=== PATIENT | male | born 1970 | race American Indian/Alaskan Native ===

== ENCOUNTER 2020-04-25 10:29 | Outpatient (CLI) | payer MEDICARE ==
--- NOTE | 2020-04-25 12:30 | Magnetic Resonance Report ---
MR LE nonjoint RT wo con INDICATION / CLINICAL INFORMATION: MAIN. TECHNIQUE: Multiplanar, multisequence MR images were obtained. COMPARISON: None available. FINDINGS: Abnormal signal seen in the first metatarsal head with degenerative change in the first metatarsophal angeal joint. A small joint effusion is present. Diffuse dorsal subcutaneous edema is seen with some deep muscular edema as well. No drainable fluid collection is identified. No soft tissue mass is seen . IMPRESSION: 1. Abnormal signal in the first metatarsal head with degenerative change in the first metatarsophalan geal joint. These findings can be seen in a variety of inflammatory conditions. This less likely repr esents infection. A small joint effusion is present. 2. Diffuse dorsal subcutaneous edema with some deep muscular edema Signer Name: Elton Wallace MD FACR Signed: 04/25/2020 12:26 PM Workstation Name: [id number]
== END 2020-04-25 10:30 | disposition home or self-care (01) ==
LOC: MRI 10:29
PROVIDERS: ATTEND Internal Medicine Hematology
DX: M19.071 Primary osteoarthritis, right ankle and foot (principal); D57.20 Sickle-cell/Hb-C disease without crisis; M79.674 Pain in right toe(s)